=== PATIENT | female | born 1980 | race Caucasian/White ===

== ENCOUNTER 2023-07-26 08:03 | Day surgery (SDC) | payer BC ==
[2023-07-26 08:25] LABS: MPV 9.4 fL (7.6-11.3); Platelets 262 thou/uL (152-406)
[2023-07-26 08:33] LABS: PT Prothrombin Time 10.2 SECONDS (9.5-12.5); PTT, Activated Partial Thromb 28.6 SECONDS (24.3-36.9); Protime INR 0.93
[2023-07-26 08:58] VITALS: BP 127/93; TEMP 97.8; O2SAT 98; BMI 25.8
--- NOTE | 2023-07-26 10:26 | RAD REPORT ---
EXAM DESCRIPTION: US - Abdomen Exam Limited - 07/26/2023 9:37 am CLINICAL HISTORY: ASCITES CHECK COMPARISON: No comparisons TECHNIQUE Focused ultrasound of the abdomen to evaluate for ascites. This was done as a pre procedu ral ultrasound. FINDINGS: All 4 quadrants identified. No ascites identified. Therefore, the paracentesis was not per formed. IMPRESSION: No ascites identified. No paracentesis performed.
== END 2023-07-26 09:19 | disposition home or self-care (01) ==
LOC: DS 08:03
PROVIDERS: ATTEND Internal Medicine Gastroenterology
DX: R91.8 Other nonspecific abnormal finding of lung field (principal); R93.5 Abnormal findings on diagnostic imaging of other abdominal regions, including retroperitoneum; K52.9 Noninfective gastroenteritis and colitis, unspecified; R10.84 Generalized abdominal pain; R93.3 Abnormal findings on diagnostic imaging of other parts of digestive tract; Z53.8 Procedure and treatment not carried out for other reasons
CPT/HCPCS: 36415; 76705; 85049; 85610; 85730